=== PATIENT | female | born 1985 | race Caucasian/White ===

== ENCOUNTER 2017-07-19 22:08 | Inpatient (IN) | payer MEDICAID ==
[~2017-07-19] VITALS: Ht 149.9 cm; Wt 62.9 kg
[~2017-07-19 22:08] MED LIST: PREN-39 PO
[2017-07-19 22:24] VITALS: Ht 149.9 cm; Wt 62.9 kg
[2017-07-19 22:29] VITALS: BP 94/62; PULSE 80; RESP 18
[2017-07-19] MEDS ORDERED: FERR256T PO (22:32)
--- NOTE | 2017-07-20 00:57 | HP ---
Date/Time of Note Date/Time of Note DATE: 07/20/17 TIME: 00:55 OB - History Hx of Present Chief Complaint: contractions Estimated Due Date: Jul 25, 2017 : 3 Para: 2 Spontaneous : 0 Therapeutic : 0 Care: Good Care Ultrasounds: Normal mid trimester US Obstetrical Complications: None Medical Complications: None Past Family/Social History * Past Medical, Surgical, Family and Obstetric Histories reviewed from chart. OB Admission Exam Vital Signs Vital Signs Vital Signs Date Time Temp Pulse Resp B/P Pulse Ox O2 Delivery O2 Flow Rate FiO2 07/19/17 22:29 98.3 80 18 94/62 97 Room Air Physical Exam HEENT: WNL Heart: Rhythm Normal Lungs: Clear, Equal Abdomen: WNL Extremities: Normal Reflexes: Normal Cervical Dilatation: 2cm Effacement: 100% Station: -1 Membranes: Intact Heart Rate: 130's Accelerations: Accelerations Present Decelerations: No Decelerations Varibility: Moderate Contractions on Admission: < 5 Minutes Apart OB Assessment/Plan Reason for admission: active labor Plan: Expectant Management KAJAL MATTHEW MD Jul 20, 2017 00:57
[2017-07-20] MEDS ORDERED: LACTATED RINGER'S 1,000 ML IV SCH (01:23)
[2017-07-20] MEDS ORDERED: CARBOPROST 250 MCG INJ IM PRN ×2 (01:30→08:30)
[2017-07-20] MEDS ORDERED: OXYTOCIN 30 UNITS/LR 500 ML IV SCH ×2 (01:30)
[2017-07-20] MEDS ORDERED: METHYLERGONOVINE 0.2 MG INJ IM PRN ×2 (01:30→08:30)
[2017-07-20] MEDS ORDERED: IBUPROFEN 600 MG TAB PO PRN (01:30)
[2017-07-20] MEDS ORDERED: OXYTOCIN 30 UNITS/LR 500 ML IV PRN ×2 (01:30→08:30)
[2017-07-20] MEDS ORDERED: MISOPROSTOL 200 MCG TAB PR PRN ×2 (01:30→08:30)
[2017-07-20] MEDS ORDERED: LIDOCAINE 1% (MPF) 30 ML INJ INJ PRN (01:30)
[2017-07-20] MEDS ORDERED: BUTORPHANOL 2 MG INJ IV PRN (01:30)
[2017-07-20] MEDS ORDERED: LACTATED RINGER'S 1,000 ML IV PRN (01:30)
[2017-07-20 02:40] LABS: BASOPHIL # 0.1 10^3/ul (0.0-0.1); BASOPHILS % 0.5 % (0.0-2.0); EOSINOPHILS # 0.1 10^3/ul (0.0-0.5); HEMATOCRIT 38.9 % (37.0-47.0); HEMOGLOBIN 12.9 g/dl (12.0-16.0); LYMPHOCYTES # 2.8 10^3/ul (0.8-2.9); LYMPHOCYTES % 26.9 % (15.0-51.0); MEAN CORPUSCULAR HEMOGLOBIN 30.4 pg (29.0-33.0); MEAN CORPUSCULAR HGB CONC 33.2 g/dl (32.0-37.0); MEAN CORPUSCULAR VOLUME 91.7 fl (82.0-101.0); MEAN PLATELET VOLUME 11.1 fl (7.4-10.4); MONOCYTE # 0.7 10^3/ul (0.3-0.9); MONOCYTES % 6.7 % (0.0-11.0); NEUTROPHIL # 6.6 10^3/ul (1.6-7.5); NEUTROPHILS % 64.5 % (39.0-77.0); PLATELET COUNT 236 10^3/UL (140-415); RED BLOOD COUNT 4.24 10^6/ul (4.20-5.40); RED CELL DISTRIBUTION WIDTH 12.8 % (11.5-14.5); WHITE BLOOD COUNT 10.3 10^3/ul (4.8-10.8)
[2017-07-20 03:03] LABS: INR 0.93; PROTIME 12.5 Sec (12.2-14.2)
[2017-07-20 03:04] LABS: PARTIAL THROMBOPLASTIN TIME 28.4 Sec (25.0-35.0)
[2017-07-20] MEDS ORDERED: LACTATED RINGER'S 1,000 ML IV* SCH (08:03)
--- NOTE | 2017-07-20 08:03 | LDN ---
Date/Time of Note Date/Time of Note DATE: 07/20/17 TIME: 08:01 Delivery Summary I was called for delivery due to precpitous labor and non avialability of atttending Weeks of Gestation 39 weeks Placenta Delivered: Spontaneously Meconium: none Episiotomy: No Perineal laceration: 1 Laceration repair: first degree left upper labia laceration, did not require repair , not bleeding Anesthesia type: None Estimated blood loss: 300 Sponge & Needle done & correct: Yes All needle counts correct: Yes Any foreign bodies felt in the: No Problems: Delivery Information Sex Infant Sex: female Apgars 1 Minute: 8 5 Minute: 9 Suctioning Nose & mouth suctioned at darnell: Yes Delee suction performed: Yes Umbilical Cord Umbilical cord with: 3 Vessels Cord presentations: no nuchal cord Cord Blood was obtained: Yes IVY ROSAS MD Jul 20, 2017 08:03
[2017-07-20] MEDS ORDERED: ACETAMINOPHEN 325 MG TAB PO PRN (08:30)
[2017-07-20] MEDS ORDERED: LANOLIN 7 GM TUBE TOP PRN (08:30)
[2017-07-20] MEDS ORDERED: WITCH HAZEL/GLYCERIN PAD PR PRN (08:30)
[2017-07-20] MEDS ORDERED: ONDANSETRON 4 MG INJ IV PRN (08:30)
[2017-07-20] MEDS ORDERED: HYDROCODONE/APAP (5/325) TAB PO PRN (08:30)
[2017-07-20] MEDS ORDERED: ZOLPIDEM 5 MG TAB PO PRN ×2 (08:30)
[2017-07-20] MEDS ORDERED: DIPHENHYDRAMINE 25 MG CAP PO PRN (08:30)
[2017-07-20] MEDS: SENNA/DOCUSATE NA (8.6MG/50MG) TAB PO SCH ×2 (09:00→21:38)
[2017-07-20 09:36] VITALS: BP 104/68; PULSE 82; RESP 18
[2017-07-20 10:15] LABS: HEMATOCRIT 34.8 % (37.0-47.0); HEMOGLOBIN 11.6 g/dl (12.0-16.0)
[2017-07-20 10:40] VITALS: BP 123/76; PULSE 76; RESP 18
[2017-07-20] MEDS: IBUPROFEN 600 MG TAB PO SCH ×2 (12:38→18:45)
[2017-07-20 12:54] VITALS: BP 134/70; RESP 18
[2017-07-20 16:15] VITALS: BP 104/67; PULSE 87; RESP 16
[2017-07-20 20:00] VITALS: BP 109/69; PULSE 86; RESP 18
[2017-07-21 00:30] VITALS: BP 127/79; PULSE 65; RESP 19
[2017-07-21] MEDS: IBUPROFEN 600 MG TAB PO SCH ×4 (00:42→18:20)
[2017-07-21 04:15] VITALS: BP 112/73; PULSE 73; RESP 19
[2017-07-21] MEDS: SENNA/DOCUSATE NA (8.6MG/50MG) TAB PO SCH ×2 (08:45→21:44)
[2017-07-21 09:00] VITALS: BP 113/66; PULSE 86; RESP 16
[2017-07-21] MEDS ORDERED: INFLUENZA VIRUS VACCINE 0.5 ML (DISPENSING) IM* ONE (09:00)
[2017-07-21 09:08] LABS: BASOPHILS % 0.3 % (0.0-2.0); EOSINOPHILS # 0.1 10^3/ul (0.0-0.5); EOSINOPHILS % 0.8 % (0.0-7.0); HEMATOCRIT 35.2 % (37.0-47.0); HEMOGLOBIN 11.6 g/dl (12.0-16.0); LYMPHOCYTES # 2.1 10^3/ul (0.8-2.9); LYMPHOCYTES % 21.4 % (15.0-51.0); MEAN CORPUSCULAR HEMOGLOBIN 30.4 pg (29.0-33.0); MEAN CORPUSCULAR VOLUME 92.4 fl (82.0-101.0); MEAN PLATELET VOLUME 10.6 fl (7.4-10.4); MONOCYTE # 0.3 10^3/ul (0.3-0.9); MONOCYTES % 3.4 % (0.0-11.0); NEUTROPHIL # 7.2 10^3/ul (1.6-7.5); NEUTROPHILS % 73.5 % (39.0-77.0); PLATELET COUNT 209 10^3/UL (140-415); RED BLOOD COUNT 3.81 10^6/ul (4.20-5.40); RED CELL DISTRIBUTION WIDTH 12.6 % (11.5-14.5); WHITE BLOOD COUNT 9.8 10^3/ul (4.8-10.8)
[2017-07-21 16:00] VITALS: BP 124/75; PULSE 80; RESP 16
[2017-07-21 20:30] VITALS: BP 113/71; PULSE 80; RESP 19
[2017-07-22] MEDS: IBUPROFEN 600 MG TAB PO SCH ×3 (00:22→11:52)
[2017-07-22 04:40] VITALS: BP 102/55; PULSE 86; RESP 19
[2017-07-22 08:30] VITALS: BP 109/68; PULSE 77; RESP 18
[2017-07-22] MEDS ORDERED: VARICELLA VACCINE LIVE/PF 1,350 UNIT/0.5 ML ML SC* ONE (09:00)
[2017-07-22] MEDS ORDERED: MEASLES,MUMPS,RUBELLA VACCINE INJ SC* ONE (09:00)
[2017-07-22] MEDS ORDERED: DIPHTH/TET/ACEL PERTUSS (ADULT) 0.5 ML VIAL IM* ONE (09:00)
[2017-07-22] MEDS: SENNA/DOCUSATE NA (8.6MG/50MG) TAB PO SCH (10:30)
--- NOTE | 2017-07-22 14:23 | PD.PPDC ---
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
--- NOTE | 2017-07-22 14:26 | DS ---
Date/Time of Note Date/Time of Note DATE: 07/22/17 TIME: 14:24 Discharge Summary Admission/Discharge Info Admit Date/Time Jul 20, 2017 at 00:55 Discharge Date/Time July 22/2017 at 1425 Discharge Diagnosis Day 2 post normal vaginal delivery Patient Condition: Good Procedures Normal vaginal delivery Hx of Present Illness Term Hospital Course Satisfactory recovery uneventful Home Meds Reported Medications Ferrous Gluconate (Iron) 256 Mg Tablet, 256 MG PO DAILY, TAB 07/19/17 Vits W-Ca,Fe,Fa(<1MG) ( Vitamins) 1 Tab Tablet, 1 TAB PO DAILY 12/04/12 Follow-up Plan instruction given recommended to make appointment to be seen at the clinic in 2 weeks Primary Care Provider Care Physician No Primary Time spent on discharge: < 30 minutes JJ ELMORE MD Jul 22, 2017 14:26
[2017-07-23] MEDS ORDERED: INFLUENZA VIRUS VACCINE 0.5 ML (DISPENSING) IM* ONE (09:00)
== END 2017-07-22 16:43 | disposition home or self-care (01) | DRG 775 ==
LOC: OBT 22:08 → L-D 22:09 → OBT 07-20 00:55 → L-D 07-20 01:57 → PP1 07-20 10:46
PROVIDERS: ADMIT Obstetrics & Gynecology; ATTEND Obstetrics & Gynecology
PROC: 10E0XZZ Delivery of Products of Conception, External Approach (ICD-10-PCS; principal; 2017-07-20)
DX: O62.3 Precipitate labor (principal); O70.0 First degree perineal laceration during delivery; Z37.0 Single live birth; Z3A.39 39 weeks gestation of pregnancy
CPT/HCPCS: 85014; 85018; 85025; 85610; 85730; 86592; 86900; 86901; 90686; 90715; 90716; G0463; J2590; J7120